=== PATIENT | male | born 1970 | race African-American/Black ===

== ENCOUNTER 2022-10-22 17:04 | Emergency (ER) | payer SELFPAY ==
--- OUTSIDE RECORDS SUMMARY | 2022-10-22 17:07 | XMS REPORT | Continuity of Care Document ---
:1970 Author Organization [facility] t Address [address] [place] [address] Care Team Providers Name Role Phone Rajendra Mckeon MD Primary Care Physician Yung Pavon MD Attending Clinician Rajendra Mckeon MD Attending Clinician Toshia Madrid MA Attending Clinician Unavailable JEFFRY GRACE Attending Clinician Unavailable Payers Payer Name Policy Type Policy Number Effective Date Expiration Date S ource Problems Condition Condition Condition Status Onset Resolution Last Treating Co mments Source Name Details Category Date Date Treatment Clinician Date No known No known Disease Metho di active active st problems problems Hospit a l Allergies, Adverse Reactions, Alerts This patient has no known allergies or adverse reactions. Family History Family Member Diagnosis Comments Start Date Stop Date Source Natural father No Known Problems Met [facility] Natural mother No Known Problems Met [facility] Social History Social Habit Start Date Stop Date Quantity Comments Source Tobacco use and 2022-06-13 2022-06-13 Smokeless tobacco [facility] exposure 00:00:00 00:00:00 non-user Hospital Alcohol intake 2022-06-13 2022-06-13 Current [facility] 00:[facility] 00:[facility]:00 non-drinker of Hospital alcohol (finding) Sex Assigned At [birth year] [facility]00 [facility] Smoking Status Start Date Stop Date Source Never smoked tobacco [facility] Medications Ordered Filled Start Stop Current Ordering Indication Dosage Frequency Signature Comments Components Source Medication Medication Date Date Medication? Clinician (SIG) Name Name losartan 2022- No [id number] 25mg QD Take 1 Me thodi (Cozaar) 25 06-19 tablet (25 s t MG tablet 00:00: 04:59 mg total) Ho spita 00 :00 by mouth l daily. cholecalcif No [id number] Q7D Take 1 M ethodi joshua, 06-[address] vitamin D3, 00:00: 05:59 (50,000 Ho spita 1,250 mcg 00 :00 Units l (50,000 total) by unit) mouth once capsule a week [place] [id number] 50mg Q12H Take 1 Metho di (Ultram) 50 06-14 tablet (50 s t mg tablet 00:00: 04:59 mg total) Ho spita 00 :00 by mouth l every 12 (twelve) hours as needed for moderate pain for up to 30 days .acute pain, chronic pain. losartan 2021- No [id number] 25mg QD Take 1 Me thodi (Cozaar) 25 06-13 tablet (25 s t MG tablet 00:00: 00:00 mg total) Ho spita 00 :00 by mouth l daily. sildenafil 2018-09 TAKE 1 Meth geovani (VIAGRA) 50 11-13 TABLET (50 s t MG tablet 00:00: 00:00 MG TOTAL) Ho spita 00 :00 BY MOUTH l DAILY NEEDED FOR ERECTILE DYSFUNCTIO N. NOT COVERED losartan TAKE 1 Method i (COZAAR) 50 05-[address] MG tablet 00:00: 00:00 MOUTH Hospit a 00 :00 EVERY DAY l celecoxib No [id number] Take 1 Methodi (CeleBREX) 04-[address] 200 MG 00:00: 00:00 mouth once Hosp see capsule 00 :00 daily as l needed for knee pain, back pain diclofenac 2017-09 No Q.25D Apply Meth geovani (VOLTAREN) 10-[address] 1 % gel 00:00: 00:00 4 (four) Hospi ta 00 :00 times a l day. Immunizations Ordered Immunization Filled Immunization Date Status Commen ts Source Name Name PFIZER COVID-19 MRNA 2021-08-30 Completed Meth odist VACCINATION 00:00:00 [facility] PFIZER COVID-19 MRNA 2021-02-16 Completed Meth odist VACCINATION 00:00:00 [facility] PFIZER COVID-19 MRNA 2021-01-26 Completed Meth odist VACCINATION 00:00:00 Hospital Vital Signs Vital Name Observation Time Observation Value Comments Source Body height 2022-07-12 16:06:00 165.1 cm [facility] Body weight 2022-07-12 16:06:00 82.101 kg [facility] BMI 2022-07-12 16:06:00 30.12 kg/m2 [facility] Systolic blood 2022-06-13 15:11:00 141 mm[Hg] [facility] pressure Diastolic blood 2022-06-13 15:11:00 87 mm[Hg] [facility] pressure Heart rate 2022-06-13 15:11:00 81 /min [facility] Body temperature 2022-06-13 15:11:00 36.78 Ke[facility] Oxygen saturation in 2022-06-13 15:11:00 98 /min [facility] Arterial blood by Pulse oximetry Procedures Procedure Date / Time Performing Clinician Source Performed XR LEG LENGTH EVALUATION 2022-07-12 16:16:43 [facility] XR KNEE 3 VW BILATERAL 2022-07-12 16:16:43 Librado [facility] CBC WITH PLATELET AND 2022-06-13 16:42:00 [facility] DIFFERENTIAL COMPREHENSIVE METABOLIC 2022-06-13 16:42:00 [facility] PANEL HEMOGLOBIN A1C 2022-06-13 16:42:00 [facility] ospital LIPID PANEL 2022-06-13 16:42:00 [facility]spital PSA, TOTAL AND FREE 2022-06-13 [facility] 2022-06-13 16:42:00 Aslam, [facility]spital THYROID STIMULATING 2022-06-13 16:42:00 Aslam, [facility] HORMONE T3, FREE 2022-06-13 16:42:00 Aslam, [facility]ital URINALYSIS, AUTOMATED 2022-06-13 16:42:00 Aslam, [facility] WITH MICROSCOPY VITAMIN B12 LEVEL 2022-06-13 16:42:00 Aslam, [facility] VITAMIN D 25 HYDROXY 2022-06-13 16:42:00 Aslam, [facility] LEVEL ECG 12-LEAD 2022-06-13 16:26:03 Aslam, [facility] ospital Plan of Care Planned Activity Planned Date Details Comments Source Future Scheduled 2022-10-22 Hepatitis C screening [facility] Test 17:06:58 (procedure) [code = 717938435] Future Scheduled 2022-10-22 SHINGLES VACCINES (1 Met [facility] Test 17:06:58 of 2) [code = SHINGLES VACCINES (1 of 2)] Future Scheduled 2022-10-22 COVID-19 VACCINE (4 - [facility] Test 17:06:58 Booster for Pfizer series) [code = COVID-19 VACCINE (4 - Booster for Pfizer series)] Future Scheduled 2022-10-22 INFLUENZA VACCINE Method [facility] Test 17:06:58 [code = INFLUENZA VACCINE] Future Scheduled 2022-10-22 COLONOSCOPY SCREENING [facility] Test 17:06:58 [code = COLONOSCOPY SCREENING] Encounters Start End Encounter Admission Attending Care Care Encounter Source Date/Time Date/Time Type Type Clinicians Facility Department ID 2022-09-29 2022-09-29 Telephone Heidi Pavon.2.840.1 [id number] Methodi 00:00:00 00:00:00 Yung Siddiqu[address] 3.430.2.7 Hospit a .3.217785 l .8 2022-07-12 2022-07-12 Office Heidi Pavon.2.840.1 [id number] Methodi 10:45:00 12:20:30 Visit Yung Siddiqui 67474.1.[address] 3.430.2.7 Hospit a .3.705785 l .8 2022-07-12 2022-07-12 Outpatient LIBRADO [facility] [id number] [place] 00:00:00 00:00:00 YUNG [address] 2022-07-12 2022-07-12 Outpatient LIBRADO [facility] [id number] [place] 00:00:00 00:00:00 YUNG [address] 2022-06-19 2022-06-19 Orders Aslam, 1.2.840.1 [id number] Methodi 00:00:00 00:00:00 Only Rakshanda [address]702.1.[address] 3.430.2.7 Hospit a .3.153656 l .8 2022-06-19 2022-06-19 Refill Julius, 1.2.840.1 [id number] Methodi 00:00:00 00:00:[address] 3.430.2.7 Hospit a .3.049914 l .8 2022-06-14 2022-06-14 Orders Aslam, 1.2.840.1 [id number] Methodi 00:00:00 00:00:00 Only Rakshanda 41878.1.[address] 3.430.2.7 Hospit a .3.955131 l .8 2022-06-14 2022-06-14 Telephone Aslam, 1.2.840.1 [id number] Methodi 00:00:00 00:00:[address] 3.430.2.7 Hospit a .3.136812 l .8 2022-06-13 2022-06-13 Office Aslam, 1.2.840.1 [id number] Methodi 10:30:00 11:56:59 Visit Rajendra 45760.1.[address] 3.430.2.7 Hospit a .3.864201 l .8 2022-06-13 2022-06-13 Travel 1.2.840.1 1.2.470.882 0823 [id number] Methodi 00:00:00 00:00:[address] 3.430.2.7 0.2.7.3.698 Ho spita .3.440813 084.8 l .8 2022-06-13 2022-06-13 Telephone Aslam, 1.2.840.1 [id number] Methodi 00:00:00 00:00:[address] 3.430.2.7 Hospit a .3.584593 l .8 2022-06-13 2022-06-13 Outpatient ASLAM, [facility] [id number] [place] 00:00:00 00:00:[address] 2022-06-05 2022-06-05 Telephone Aslam, 1.2.840.1 [id number] Methodi 00:00:00 00:00:[address] 3.430.2.7 Hospit a .3.009656 l .8 2022-06-01 2022-06-01 Telephone Aslam, 1.2.840.1 [id number] Methodi 00:00:00 00:00:[address] 3.430.2.7 Hospit a .3.675976 l .8 2022-05-19 2022-05-19 Travel 1.2.840.1 1.2.262.411 2947 [id number] Methodi 00:00:00 00:00:[address] 3.430.2.7 0.2.7.3.698 Ho spita .3.770762 084.8 l .8 2022-05-17 2022-05-17 Telephone Aslam, 1.2.840.1 [id number] Methodi 00:00:00 00:00:[address] 3.430.2.7 Hospit a .3.260392 l .8 2022-05-17 2022-05-17 Travel 1.2.840.1 1.2.712.210 [id number] Methodi 00:00:00 00:00:[address] 3.430.2.7 0.2.7.3.698 Ho spita .3.162554 084.8 l .8 2021-08-30 2021-08-30 Outpatient [facility] [id number] [place] 00:00:00 00:00:[address] 2021-02-16 2021-02-16 Outpatient LESLY, [facility] [id number] [place] 00:00:00 00:00:00 JEFFRY [address] 2021-01-26 2021-01-26 Outpatient [facility] [id number] [place] 00:00:00 00:00:[address] Results Test Description Test Time Test Comments Results Result Comments Source ECG 12 lead 2022-06-23 20:56:48 Test Item Value Reference Range Interpretation Comme nts Ventricular rate (test code = 253) Atrial rate (test code = 255) MN interval (test code = 266) QRSD interval (test code = 260) QT interval (test code = 264) QTC interval (test code = 265) P axis 1 (test code = 267) QRS axis 1 (test code = 268) T wave axis (test code = 270) EKG impression (test code = 273) Sinus bradycardia-Possible Left at rial enlargement-Left axis deviation-Incomplete right bundle branch block-Abnormal ECG-In automated comparison with ECG of 30-JUL-2018 10:18,-Incomplete right bundle branch block is now present- [facility] [id number] 11:52:00 Test Item Value Reference Range Interpretation Comments Glucose (test code 86 mg/dL 65-99 Fasting = 2345-7) reference interval BUN (test code = 9 mg/dL 7-25 3094-0) Creatinine (test 0.93 mg/dL 0.70-1.30 code = 2160-0) eGFR (test code = See_Comment The eGFR i s based 8257) on the CKD-EPI 2020 equation. To calculate the n ew eGFR from a previous Creatinine or Cystatin Cresul t, go to https://www.kid ne y.org/profpatricia na ls/kdoqi/gfr%5F ca lculator [Automated message] The system which generated this result transmitted reference range : > OR = 60 mL/min/1.73m2. The reference range was not used to interpr et this result as normal/abnormal . BUN/creatinine NOT APPLICABLE See_Comment [Automated ratio (test code = message] The 3097-3) system which generated this result transmitted reference range : 6 - 22 (calc). The reference range was not used to interpr et this result as normal/abnormal . Sodium (test code 140 mmol/L 135-146 = 2951-2) Potassium (test 3.9 mmol/L 3.5-5.3 code = 2823-3) Chloride (test 106 mmol/L 98-110 code = 2075-0) CO2 (test code = 27 mmol/L 20-32 2028-05) Calcium (test code 9.4 mg/dL 8.6-10.3 = 34184-4) Protein (test code 7.1 g/dL 6.1-8.1 = 2885-2) Albumin, S (test 4.4 g/dL 3.6-5.1 code = 1751-7) Globulin, total See_Comment [Automated (test code = message] The 92483-5) system which generated this result transmitted reference range : 1.9 - 3.7 g/dL (calc). The reference range was not used to interpret this result as normal/abnormal . Albumin/globulin See_Comment [Automated ratio (test code = message] The 17590) system which generated this result transmitted reference range : 1.0 - 2.5 (calc ). The reference range was not used to interpr et this result as normal/abnormal . Total bilirubin 0.7 mg/dL 0.2-1.2 (test code = 1975-2) Alkaline 67 U/L 35-144 phosphatase (test code = 6768-6) AST (test code = 14 U/L 10-35 1920-8) ALT (test code = 13 U/L 946 1742-6) RAC (test code = Performing RAC) Organization Information: Site ID: HODA Name: [facility] Address: [address] [place] [phone] Director: Girish Reid [facility]lineLipid [id number] 11:52:00 Test Item Value Reference Range Interpretation Comments Cholesterol, total 216 mg/dL See_Comment H [Automat ed (test code = 2093-3) message ] The system which generated this result transmitted reference range : <=200. The reference range was not used to interpret this result as normal/abnormal . HDL cholesterol 60 mg/dL See_Comment [Automated (test code = 2085-9) message ] The system which generated this result transmitted reference range : > OR = 40. The reference range was not used to interpret this result as normal/abnormal . Triglycerides (test 66 mg/dL See_Comment [Automa ace code = 2571-8) message] The system which generated this result transmitted reference range : <=150. The reference range was not used to interpret this result as normal/abnormal . LDL cholesterol mg/dL (calc) H Reference ra nge: calculated (test <100 Desira ble code = 05078-7) range <100 m g/dL for primary prevention; <70 mg/dL for patients with C HD or diabetic patients with > or = 2 CHD risk factors. LDL-C is now calculated using the Abraham-Damian calculation, which is a validated novel method providin g better accuracy than the Friedewald equation in the estimation of LDL-C. Abraham S S et al. JOY. 2013;310(19): 2321-2575 (http://educati on .QuestDiagnosti Avacen .com/faq/RJI983 ) Cholesterol/HDL See_Comment [Automated ratio (test code = message] The 9830-1) system which generated this result transmitted reference range : <5.0 (calc). Th e reference range was not used to interpret this result as normal/abnormal . Non-HDL cholesterol See_Comment H For raina ents with (test code = diabetes plus 1 77409-2) major ASCVD ris k factor, treatin g to a non-HDL-C goal of <100 mg/dL (LDL-C of <70 mg/dL) is considered a therapeutic option. [Automated message] The system which generated this result transmitted reference range : <130 mg/dL (calc). The reference range was not used to interpret this result as normal/abnormal . RAC (test code = Performing RAC) Organization Information: Site ID: [facility] Name: [facility] Address: [address] [place] [phone] Director: Girish Reid Lab Interpretation Abnormal (test code = 08632-9) [facility]line[facility]itamin B12 [id number] 11:52:00 Test Item Value Reference Range Interpretation Comments Vitamin B12 (test 541 pg/mL 200-1100 code = 2132-9) RAC (test code = Performing Organization RAC) Information: Site ID: [facility] Name: [facility] Address: [address] [place] [phone] Director: Girish Reid [facility]lineHemoglobin [id number] 11:52:00 Test Item Value Reference Range Interpretation Comments Hemoglobin A1C See_Comment For the purpo se of (test code = screening for t he 4548-4) presence ofdiab etes: <5.7% Consisten t with the absence of diabetes5.7-6.4 % Consistent with increased risk for diabetes (prediabetes)> or =6.5% Consisten t with diabetes This a ssay result is consi stent with a decrease d riskof diabetes . Currently, no consensus exist s regarding use ofhemoglobin A1 c for diagnosis of di abetes in children. According to [place] er[place] Diabetes Associ ation (ADA)guidelines , hemoglobin A1c <7.0% represents optimalcontrol in non- di abetic patients. Differentmetric s may apply to specif ic patient populat ions. Standards of Me dical Care in Diabetes(ADA). [Automated mess age] The system [employer] generated this result transmitted ref erence range: <5.7 % o f total Hgb. The reference range was not used to int erpret this result as normal/abnormal . RAC (test code = Performing RAC) Organization Information: Site ID: A [facility]: [facility] Address: [address] [place] [phone] Director: [facility] HospitalT4, [id number] 11:52:00 Test Item Value Reference Range Interpretation Comments T4, free (test code 1.0 ng/dL 0.8-1.8 = 3024-7) RAC (test code = Performing Organization RAC) Information: Site ID: [facility] Name: [facility] Address: [address] [place] [address] Director: Doctors HospitalThyroid stimulating [id number] 11:52:00 Test Item Value Reference Range Interpretation Comments TSH (test See_Comment [Automated mes sandra] code = The system [facility] 3016-3) generated this result transmit ace reference range : 0.40 - 4.50 mIU /L. The reference r bella was not used to interpret this result as normal/abnormal . RAC (test Performing code = RAC) Organization Information: Site ID: [facility] Name: [facility] Address: [address] [place] [address] Director: [place] [address], [id number] 11:52:00 Test Item Value Reference Range Interpretation Comments T3, free (test code 3.0 pg/mL 2.3-4.2 = 3051-0) RAC (test code = Performing Organization RAC) Information: Site ID: [facility] Name: [facility] Address: [address] [place] [address] Director: Doctors HospitalPSA, total and [id number] 11:52:00 Test Item Value Reference Range Interpretation Comments PSA (test 0.5 ng/mL See_Comment [Automated mes sandra] The code = system which ge nerated 2857-1) this result tra nsmitted reference range : < OR = 4.0. The refere nce range was not used to interpret this result as normal/abnormal . PSA, free 0.2 ng/mL (test code = 23535-7) PSA, free See_Comment PSA(ng/mL) Wali e PSA(%) percent (test Estimated(x) P robability code = of Cancer(as%)0 -2.5 (*) 43303-4) Approx. 12.6-4. 0(1) 0-27(2) 24(3)4. 1-10(4) 0-10 56 11-15 28 16-20 20 21-25 16 >or =26 8>10(+) N/A >50 References:(1)Jason cortez et al.:Urology 60: 469-474 (2002) (2)Jacky et al.:J.Urol 168: 922-925 (2001) Free PSA (%) Sensitivity(%) Specificity(%) < or = 25 85 19 < or = 30 93 9 (3)Catalona et al.:JOY 277: 2347-5561 (1996) (4)Catalona et al.:JOY 279: 9571-0675 (1997) (x)These estima kimberly vary with age, ethni city, family history and TREY results.(*)The diagnostic usef ulness of % Free PSA has not been established in patients with total PSA below 2.6 ng/mL(+)In men with PSA above 10 ng/mL, prostate cancer risk is determined by t otal PSA alone. The Tota l PSA value from this assay system is stand ardized against the equ imolar PSA standard. T he test result will be approximately 2 0% higher when compared t o the WHO-standardize d Total PSA (Siemens as say). Comparison of s erial PSA results should be interpreted wit h this fact in mind. P SA was performed using the Nato CoulterImmunoas say method. Values obtained from differenta ssay methods cannot be used interchangeably . PSAlevels, rega rdless of value, should n ot be interpretedas a bsolute evidence of the presence or absence ofdi sease. [Automated mess age] The system which ge nerated this result tra nsmitted reference range : >25 % (calc). The ref erence range was not u sed to interpret this result as normal/abnormal . RAC (test Performing code = RAC) Organization Information: Site ID: IG Name: [facility] Address: [address] [place] [phone] Director: Dr. Girish Reid [facility] with platelet and [id number] 11:52:00 Test Item Value Reference Range Interpretation Comments WBC (test code = See_Comment L [Automated 6690-2) message] The system which generated this result transmitted reference range : 3.8 - 10.8 Thousand/uL. Th e reference range was not used to interpret this result as normal/abnormal . RBC (test code = See_Comment [Automated 789-8) message] The system which generated this result transmitted reference range : 4.20 - 5.80 Million/uL. The reference range was not used to interpret this result as normal/abnormal . HGB (test code = 14.5 g/dL 13.2-17.1 718-7) HCT (test code = 44.2 % 38.5-50.0 4544-3) MCV (test code = 91.1 fL 80.0-100.0 787-2) MCH (test code = 29.9 pg 27.0-33.0 785-6) MCHC (test code = 32.8 g/dL 32.0-36.0 786-4) RDW (test code = 13.7 % 11.0-15.0 788-0) Platelet count (test See_Comment [Autom ated code = 777-3) message] The system which generated this result transmitted reference range : 140 - 400 Thousand/uL. Th e reference range was not used to interpret this result as normal/abnormal . MPV (test code = 11.7 fL 7.5-12.5 776-5) Neutrophils, See_Comment L [Automated absolute (test code message] The = 751-8) system which generated this result transmitted reference range : 1,500 - 7,800 cells/uL. The reference range was not used to interpret this result as normal/abnormal . Lymphocytes, See_Comment [Automated absolute (test code message] The = 731-0) system which generated this result transmitted reference range : 850 - 3,900 cells/uL. The reference range was not used to interpret this result as normal/abnormal . Monocytes, absolute See_Comment [Automa ace (test code = 742-7) message] The system which generated this result transmitted reference range : 200 - 950 cells/uL. The reference range was not used to interpret this result as normal/abnormal . Eosinophils, See_Comment [Automated absolute (test code message] The = 711-2) system which generated this result transmitted reference range : 15 - 500 cells/uL. The reference range was not used to interpret this result as normal/abnormal . Basophils, absolute See_Comment [Automa ace (test code = 704-7) message] The system which generated this result transmitted reference range : 0 - 200 cells/u L. The reference range was not used to interpr et this result as normal/abnormal . Neutrophils (test 51.6 % code = 770-8) Lymphocytes (test 31.3 % code = 736-9) Monocytes (test code 12.4 % = 5905-5) Eosinophils (test 4.0 % code = 713-8) Basophils + RC (test 0.7 % code = 706-2) RAC (test code = Performing RAC) Organization Information: Site ID: RGA Name: [facility] Address: [address] [place] [phone] Director: Girish Reid Lab Interpretation Abnormal (test code = 77700-3) [facility], automated with [id number] 11:52:00 Test Item Value Reference Range Interpretation Comments Color, UA (test YELLOW YELLOW code = 5778-6) Appearance (test CLEAR CLEAR code = 5767-9) Specific gravity, 1.001-1.035 urine (test code = 5811-5) pH, urine (test 5.0-8.0 code = 5803-2) Glucose, urine NEGATIVE NEGATIVE (test code = 24838-7) Bilirubin, UA NEGATIVE NEGATIVE (test code = 5770-3) Ketones, UA (test NEGATIVE NEGATIVE code = 2514-8) Occult blood, NEGATIVE NEGATIVE urine (test code = 5794-3) Protein, UA (test NEGATIVE NEGATIVE code = 49165-9) Nitrite, UA (test NEGATIVE NEGATIVE code = 5802-4) Leukocyte NEGATIVE NEGATIVE esterase, UA (test code = 5799-2) WBC, UA (test NONE SEEN See_Comment [Automated code = 5821-4) message] The system which generated this result transmit ace reference range : < OR = 5 /HPF. Th e reference range was not used to interpret this result as normal/abnormal . RBC, UA (test NONE SEEN See_Comment [Automated code = 03354-4) message] The system which generated this result transmit ace reference range : < OR = 2 /HPF. Th e reference range was not used to interpret this result as normal/abnormal . Squamous NONE SEEN See_Comment [Automated epithelial cells, message] T he UA (test code = system which 77919-9) generated this result transmit ace reference range : < OR = 5 /HPF. Th e reference range was not used to interpret this result as normal/abnormal . Bacteria, UA NONE SEEN NONE SEEN /HPF (test code = 5769-5) Hyaline casts, UA NONE SEEN NONE SEEN /LPF (test code = 5796-8) Note: (test code This urine was = 8251-1) analyzed for th e presence of WBC , RBC, bacteria, casts, and othe r formed elements . Only those elements seen w ere reported. RAC (test code = Performing RAC) Organization Information: Site ID: [id number] Name: [facility] Address: [address] [place] [id number] Director: [place] Herbert [facility]it[facility] D 25 hydroxy [id number] 11:52:00 Test Item Value Reference Range Interpretation Comments Vitamin D, 25-hydroxy 15 ng/mL 30-100 L Vitami n D Status (test code = 1988-11) 25-OH Vitamin D: Deficiency: <20 ng/mLInsufficie n cy: 20 - 29 ng/mLOptimal: > or = 30 ng/mL For 25-OH Vitamin D testing on patients on D2-supplementat i on and patients for whom quantitation of D2 and D3 fractions is required, the QuestAssureD(TM ) 25-OH VIT D, (D2,D3), LC/MS/MS is recommended: order code 9288 8 (patients >2yrs).See Note 1 Note 1 For additional information, please refer to [email or web address] [email or web address] (This link is being provided for informational/e d ucational purposes only.) MICK (test code = RAC) Performing Organization Information: Site ID: [id number] Name: [facility] Address: [address] [place] [id number] Director: [facility] Interpretation Abnormal (test code = 54482-3) [facility]
--- NOTE | 2022-10-22 19:16 | RAD REPORT ---
EXAM DESCRIPTION: RAD - Hand Left 3 View - 10/22/2022 7:02 pm CLINICAL HISTORY: Pain COMPARISON: No comparisons FINDINGS/IMPRESSION: No acute fracture. No malalignment. No significant focal degenerative changes. Soft tissue injury associated with the distal aspect of the fourth finger.
[2022-10-22] MEDS ORDERED: BUPIVACAINE 0.25% PF 10 ML VIAL ONE (19:31)
[2022-10-22] MEDS ORDERED: LIDOCAINE 1% MPF 5 ML VIAL ONE (19:31)
--- NOTE | 2022-10-22 20:31 | ER ---
Nurse's Notes [facility] Name: Tracy Luna Age: 52 yrs Sex: Male : 1970 Arrival Date: 10/22/2022 Time: 17:05 Bed 10 Private MD: Diagnosis: Laceration without foreign body of left ring finger with damage to nail, initial encounter;Crushing injury of left ring finger Presentation: 10/22 17:20 Chief complaint: Patient states: slammed finger in door, finger was split open. ko1 Coronavirus screen: At this time, the client does not indicate any symptoms associated with coronavirus-19. Ebola Screen: No symptoms or risks identified at this time. Initial Sepsis Screen: Does the patient meet any 2 criteria? No. Patient's initial sepsis screen is negative. Does the patient have a suspected source of infection? No. Patient's initial sepsis screen is negative. Risk Assessment: Do you want to hurt yourself or someone else? Patient reports no desire to harm self or others. Onset of symptoms was October 22, 2022 at 15:30. 17:20 Method Of Arrival: Ambulatory ko1 17:20 Acuity: ARUN 3 ko1 Triage Assessment: 17:22 General: Appears in no apparent distress. uncomfortable, Behavior is calm, cooperative, ko1 appropriate for age. Pain: Complains of pain in left fourth finger. Musculoskeletal: Reports pain in left fourth finger since 0 today. Injury Description: Crush injury sustained to left fourth finger is was sustained 1-2 hours ago. Historical: - Allergies: 17:22 No Known Allergies; ko1 - Immunization history:: Adult Immunizations up to date, Last tetanus immunization: up to date. - Social history:: Smoking status: Patient denies any tobacco usage or history of. Screenin:18 [facility] ED Fall Risk Assessment (Adult) History of falling in the last 3 months, ph including since admission No falls in past 3 months (0 pts) Confusion or Disorientation No (0 pts) Intoxicated or Sedated No (0 pts) Impaired Gait No (0 pts) Mobility Assist Device Used No (0 pt) Altered Elimination No (0 pt) Score/Fall Risk Level 0 - 2 = Low Risk Oriented to surroundings, Maintained a safe environment. Abuse screen: Denies threats or abuse. Denies injuries from another. Nutritional screening: No deficits noted. Tuberculosis screening: No symptoms or risk factors identified. Assessment: 18:17 General: Appears in no apparent distress. Behavior is calm, cooperative, appropriate ph for age. Pain: Complains of pain in dorsal aspect of distal phalanx of left ring finger and dorsal aspect of middle phalanx of left ring finger. Neuro: Level of Consciousness is awake, alert, obeys commands, Oriented to person, place, time, situation. Cardiovascular: Capillary refill < 3 seconds in bilateral fingers Patient's skin is warm and dry. Respiratory: Airway is patent Respiratory effort is even, unlabored. Musculoskeletal: Reports pain in dorsal aspect of distal phalanx of left ring finger and dorsal aspect of middle phalanx of left ring finger. 18:55 Reassessment: Patient appears in no apparent distress at this time. Patient and/or ph family updated on plan of care and expected duration. Pain level reassessed. Patient is alert, oriented x 3, equal unlabored respirations, skin warm/dry/pink. Xray at bedside. 19:34 Reassessment: Patient and/or family updated on plan of care and expected duration. Pain mb9 level reassessed. Patient is alert, oriented x 3, equal unlabored respirations, skin warm/dry/pink. [employer], Vivien, at bedside. 21:02 Reassessment: No changes from previously documented assessment. Patient and/or family mb9 updated on plan of care and expected duration. Pain level reassessed. Patient is alert, oriented x 3, equal unlabored respirations, skin warm/dry/pink. Vital Signs: 17:20 BP 146 / 78; Pulse 81; Resp 18; Temp 98.8; Pulse Ox 100% ; Weight 72.57 kg; Height 5 ko1 ft. 6 in. (167.64 cm); Pain 8/10; 21:02 BP 152 / 84; Pulse 86; Resp 20; Pulse Ox 100% on R/A; mb9 17:20 Body Mass Index 25.82 (72.57 kg, 167.64 cm) ko1 ED Course: 17:05 Patient arrived in ED. am2 17:15 [facility]uga [facility]C [facility]. snw 17:15 Massimo Green MD is Attending Physician. snw 17:22 Triage completed. ko1 17:22 Arm band placed on right wrist. Patient placed in waiting room, Patient notified of ko1 wait time. 18:17 Janet Green, RN is Primary Nurse. ph 18:19 Patient has correct armband on for positive identification. Bed in low position. Call ph light in reach. Door closed. Noise minimized. Warm blanket given. 18:19 Patient did not have IV access during this emergency room visit. ph 19:03 Hand Left 3 View XRAY In Process Unspecified. EDMS 19:11 Primary Nurse role handed off by Janet Green RN mw2 19:40 Assist provider with nerve block (digital) of Set up for procedure. Performed by Korin FARIAS Patient tolerated well. 20:10 Jany Daniel, RN is Primary Nurse. mb9 20:31 Roe Morales MD is Referral Physician. snw Administered Medications: 19:57 Drug: Hibiclens (chlorhexidine) Liquid 4 % 1 application Route: Topical; Site: affected mb9 area; 19:57 Drug: Lidocaine (1 %) 5 mg Volume: 5 ml; Route: Infiltration; mb9 19:57 Drug: Marcaine (bupivacaine) (0.25 %) 1 vials Route: Infiltration; mb9 Medication: 18:18 VIS not applicable for this client. ph Outcome: 20:31 Discharge ordered by . snw 20:47 Discharged to home ambulatory. mb9 20:47 Condition: stable 20:47 Discharge instructions given to patient, Instructed on discharge instructions, follow up and referral plans. Demonstrated understanding of instructions, follow-up care, medications, Prescriptions given X 3. 21:03 Patient left the ED. mb9 Signatures: Dispatcher [employer] EDMS Korin Puga FNP-C LENS DOTTER-Csnw Janet Green, RN RN Toshia Cisneros am2 Meghan Olvera mw2 Libby Philippe RN RN ko1 Jany Daniel, ORVILLE cortes9
--- NOTE | 2022-10-22 20:31 | EDPHYS ---
Physician Documentation [facility] Name: Tracy Luna Age: 52 yrs Sex: Male : 1970 Arrival Date: 10/22/2022 Time: 17:05 Bed 10 Private MD: Massimo Brewster HPI: 10/22 20:33 This 52 yrs old Black Male presents to ER via Ambulatory with complaints of Finger snw Injury. 20:33 The patient or guardian reports crushed left ring finger in [facility] cell gate. The snw complaints affect the dorsal aspect of distal phalanx of left ring finger. The patient has not experienced similar symptoms in the past. Historical: - Allergies: 17:22 No Known Allergies; ko1 - Immunization history:: Adult Immunizations up to date, Last tetanus immunization: up to date. - Social history:: Smoking status: Patient denies any tobacco usage or history of. ROS: 20:33 Constitutional: Negative for fever, chills, and weight loss. snw 20:33 Skin: Positive for crush injury to left ring finger at work. Exam: 19:24 Constitutional: This is a well developed, well nourished patient who is awake, alert, snw and in no acute distress. Head/Face: Normocephalic, atraumatic. Eyes: Pupils equal round and reactive to light, extra-ocular motions intact. Lids and lashes normal. Conjunctiva and sclera are non-icteric and not injected. Cornea within normal limits. Periorbital areas with no swelling, redness, or edema. ENT: Nares patent. No nasal discharge, no septal abnormalities noted. Tympanic membranes are normal and external auditory canals are clear. Oropharynx with no redness, swelling, or masses, exudates, or evidence of obstruction, uvula midline. Mucous membranes moist. Neck: Trachea midline, no thyromegaly or masses palpated, and no cervical lymphadenopathy. Supple, full range of motion without nuchal rigidity, or vertebral point tenderness. No Meningismus. Chest/axilla: Normal chest wall appearance and motion. Nontender with no deformity. No lesions are appreciated. Cardiovascular: Regular rate and rhythm with a normal S1 and S2. No gallops, murmurs, or rubs. Normal PMI, no JVD. No pulse deficits. Respiratory: Lungs have equal breath sounds bilaterally, clear to auscultation and percussion. No rales, rhonchi or wheezes noted. No increased work of breathing, no retractions or nasal flaring. Abdomen/GI: Soft, non-tender, with normal bowel sounds. No distension or tympany. No guarding or rebound. No evidence of tenderness throughout. Back: No spinal tenderness. No costovertebral tenderness. Full range of motion. MS/ Extremity: Pulses equal, no cyanosis. Neurovascular intact. Full, normal range of motion. Neuro: Awake and alert, GCS 15, oriented to person, place, time, and situation. Cranial nerves II-XII grossly intact. Motor strength 5/5 in all extremities. Sensory grossly intact. Cerebellar exam normal. Normal gait. Psych: Awake, alert, with orientation to person, place and time. Behavior, mood, and affect are within normal limits. 19:24 Skin: Appearance: Color: normal in color, injury, smash injury with laceration under nail and to medial and lateral aspects of left distal ring finger, ring removed on initial assessment and pt placed it on his right pinkie, flesh to distal finger unroofed at end of nail, nearly amputated. Vital Signs: 17:20 BP 146 / 78; Pulse 81; Resp 18; Temp 98.8; Pulse Ox 100% ; Weight 72.57 kg; Height 5 ko1 ft. 6 in. (167.64 cm); Pain 8/10; 21:02 BP 152 / 84; Pulse 86; Resp 20; Pulse Ox 100% on R/A; mb9 17:20 Body Mass Index 25.82 (72.57 kg, 167.64 cm) ko1 Laceration: 19:41 Wound Repair of 3cm ( 1.2in ) avulsed laceration to dorsal aspect of distal phalanx of snw left ring finger. Irregularly shaped.. Skin/tissue flap noted.. Distal neuro/vascular/tendon intact. Anesthesia: Digital block administered with 4 mls of 1% lidocaine, Digital block administered with 4 mls of 0.25% marcaine. Wound prep: Extensive cleansing with hibiclenz by nj. Skin closed with 8 3-0 Ethilon using interrupted sutures and sterile technique. Dressed with pressure dressing. Patient tolerated well. MDM: 17:28 Patient medically screened. [facility] 18:00 Data reviewed: vital signs, nurses notes. Counseling: I had a detailed discussion with snw the patient and/or guardian regarding: the historical points, exam findings, and any diagnostic results supporting the discharge/admit diagnosis. ED course: Encouraged pt to remove wedding ring from left fourth finger prior to increased edema - assisted with ring removal. Wound re-wrapped loosely and will await x-ray. 20:29 Management of patient was discussed with the following: Dr. Simon closure. Special snw discussion: I have referred the patient to see his PCP for further evaluation of high blood pressure. Based on the history and exam findings, there is no indication for further emergent testing or inpatient evaluation. I discussed with the patient/guardian the need to see the hand specialist for further evaluation of the symptoms. 10/22 17:50 Order name: Hand Left 3 View XRAY; Complete Time: 19:18 snw 10/22 19:23 Order name: Suture Tray Setup; Complete Time: 19:32 snw Administered Medications: 19:57 Drug: Hibiclens (chlorhexidine) Liquid 4 % 1 application Route: Topical; Site: affected mb9 area; 19:57 Drug: Lidocaine (1 %) 5 mg Volume: 5 ml; Route: Infiltration; mb9 19:57 Drug: Marcaine (bupivacaine) (0.25 %) 1 vials Route: Infiltration; mb9 Disposition Summary: 10/22/22 20:31 Discharge Ordered Location: Home snw Condition: Stable snw Diagnosis - Laceration without foreign body of left ring finger with damage to nail, initial snw encounter - Crushing injury of left ring finger snw Followup: snw - With: Emergency Department - When: As needed - Reason: Worsening of condition Followup: snw - With: Roe Morales MD - When: 1 - 2 days - Reason: Recheck today's complaints, Continuance of care Discharge Instructions: - Discharge Summary Sheet snw - Cast or Splint Care, Adult snw - Laceration Care, Adult snw - Sutured Wound Care snw - Crush Injury of the Hand snw Forms: - Medication Reconciliation Form snw - Thank You Letter snw - Antibiotic Education snw - Prescription Opioid Use snw - Work release form snw Prescriptions: - Mobic 7.5 mg Oral Tablet - take 1 tablet by ORAL route once daily take with food; 20 tablet; Refills: 0, snw Product Selection Permitted - Doxycycline Hyclate 100 mg Oral Tablet - take 1 tablet by ORAL route every 12 hours; 20 tablet; Refills: 0, Product snw Selection Permitted - Tramadol 50 mg Oral Tablet - take 1 tablet by ORAL route every 8 hours as needed; 12 tablet; Refills: 0, snw Product Selection Permitted Signatures: Dispatcher [employer] EDMT Massimo Green, Korin Boyce MD, cha, SURGICAL INSTRUMENT MAKER-C SURGICAL INSTRUMENT MAKER-Csnw Libby Philippe, RN RN ko1 Jany Daniel RN RN mb9 Corrections: (The following items were deleted from the chart) 20:33 19:24 Skin: Appearance: Color: normal in color, injury, smash injury with laceration snw under nail and to medial and lateral aspects of left distal ring finger, ring removed on dc, snw 20:35 19:24 Skin: Appearance: Color: normal in color, injury, smash injury with laceration snw under nail and to medial and lateral aspects of left distal ring finger, ring removed on initial assessment and pt placed it on his right pinkie, snw
[2022-10-22 22:08] VITALS: TEMP 98.8; O2SAT 100
[2022-10-22 22:09] VITALS: BP 152/84
== END 2022-10-22 21:03 | disposition home or self-care (01) ==
LOC: ER 17:04
PROC: 0HQGXZZ Repair Left Hand Skin, External Approach (ICD-10-PCS; principal; 2022-10-22)
DX: S61.315A Laceration without foreign body of left ring finger with damage to nail, initial encounter (principal); S67.195A Crushing injury of left ring finger, initial encounter
CPT/HCPCS: 64450; 99284; J2001